=== PATIENT | female | born 1950 | race Caucasian/White ===

== ENCOUNTER → 2018-07-24 13:35 | Outpatient (CLI) | payer SELFPAY ==
[2015-02-10 06:39] VITALS: BMI 36.9
[~2018-07-24 13:35] MED LIST: ALEVE220 MG PO; AMBIEN CR12.5 MG/BO PO; CELEXA20 MG PO; HYDROCODONE-APA1 TAB PO; LEVBID0.375 MG PO; PRILOSEC20 MG PO
== END | disposition home or self-care (01) ==
LOC: D.LABREF 13:35
DX: R50.9 Fever, unspecified (principal)

== ENCOUNTER → 2018-07-24 14:51 | Outpatient (CLI) | payer MEDICARE, OTHER ==
[2015-02-10 06:39] VITALS: BMI 36.9
[2018-07-24 18:10] LABS: BASOPHILS 0.2 % (0-2); EOSINOPHILS 0.6 % (0-7); HEMATOCRIT 38.4 % (36.0-48.0); HEMOGLOBIN 12.4 g/dL (12-16); IMMATURE GRANULOCYTES 0.3 % (0-5); LYMPHOCYTES 18.4 % (15-50); MCH 31.4 pg (26.0-34.0); MCHC 32.3 g/dL (31.0-37.0); MCV 97.2 fL (80.0-100.0); MEAN PLATELET VOLUME 10.1 fL (7.4-10.4); MONOCYTES 8.4 % (2-11); NEUTROPHILS 72.1 % (40-80); PLATELET COUNT 263 10x3/uL (130-400); RBC 3.95 10x6/uL (4.00-5.40); RDW 12.4 % (11.5-14.5)
[2018-07-24 18:32] LABS: ALKALINE PHOSPHATASE 64 U/L (46-116); ALT (SGPT) 21 U/L (10-68); BILIRUBIN - TOTAL 0.26 mg/dL (0.2-1.3); CALC OSMOLALITY 287 mosm/kg (275-300); CALCIUM 8.8 mg/dL (8.5-10.1); CARBON DIOXIDE 32.4 mmol/L (21.0-32.0); CHLORIDE - SERUM 102 mmol/L (98-107); CREATININE - SERUM 0.7 mg/dL (0.6-1.3); GLUCOSE 109 mg/dL (74-106); POTASSIUM - SERUM 3.8 mmol/L (3.5-5.1); PROTEIN - SERUM 7.3 g/dL (6.4-8.2); SODIUM 143 mmol/L (136-145); UREA NITROGEN 18 mg/dL (7-18); eGFR NON AFRICAN AMERICAN 89 mL/min (90-120)
[2018-07-24 19:38] LABS: ERYTHROCYTE SEDIMENTATION RATE 20 mm/hr (0-30)
[2018-07-27 14:13] LABS: ANA REFLEX - DIRECT Negative (Negative)
[2018-07-27 20:07] LABS: CYCLIC CITRULL PEPTIDE IGG/IGA 5 units (0-19)
[2018-07-30 15:16] LABS: ANCA - ANTIMYELOPEROXIDASE <9.0 U/mL (0.0-9.0); ANCA - ANTIPROTEINASE 3 <3.5 U/mL (0.0-3.5); ANCA - ATYPICAL <1:20 titer (Neg:<1:20); ANCA - CYTOPLASMIC <1:20 titer (Neg:<1:20); ANCA - PERINUCLEAR <1:20 titer (Neg:<1:20)
== END | disposition home or self-care (01) ==
LOC: D.LABREF 14:51
PROVIDERS: Family Medicine
DX: R50.9 Fever, unspecified (principal)

== ENCOUNTER → 2018-08-08 15:52 | Outpatient (CLI) | payer MEDICARE, OTHER ==
[2015-02-10 06:39] VITALS: BMI 36.9
[2018-08-08 20:13] LABS: APPEARANCE HAZY (CLEAR); BILIRUBIN NEGATIVE (NEGATIVE); COLOR YELLOW (YELLOW); GLUCOSE NEGATIVE (NEGATIVE); KETONE NEGATIVE (NEGATIVE); NITRITE NEGATIVE (NEGATIVE); PROTEIN TRACE mg/dL (NEGATIVE); SPECIFIC GRAVITY 1.015 (1.005-1.020); UROBILINOGEN NORMAL (NORMAL)
[2018-08-08 20:14] LABS: BACTERIA MANY /hpf (NONE SEEN); EPITHELIAL CELLS 0-5 /hpf (0-5); RED CELLS - URINE 0-5 /hpf (0-5); WHITE CELLS - URINE 25-50 /hpf (0-5)
== END | disposition home or self-care (01) ==
LOC: D.LABREF 15:52
PROVIDERS: Student in an Organized Health Care Education/Training Program
DX: R50.9 Fever, unspecified (principal); L98.9 Disorder of the skin and subcutaneous tissue, unspecified

== ENCOUNTER → 2018-09-05 16:53 | Outpatient (CLI) | payer MEDICARE, OTHER ==
[2015-02-10 06:39] VITALS: BMI 36.9
== END | disposition home or self-care (01) ==
LOC: D.CT 16:53
DX: R50.9 Fever, unspecified (principal)

== ENCOUNTER → 2018-09-07 15:25 | Outpatient (CLI) | payer MEDICARE, OTHER ==
[2015-02-10 06:39] VITALS: BMI 36.9
[2018-09-07 15:36] LABS: BASOPHILS 0.1 % (0-2); EOSINOPHILS 1.8 % (0-7); HEMOGLOBIN 12.2 g/dL (12-16); IMMATURE GRANULOCYTES 0.3 % (0-5); LYMPHOCYTES 21.8 % (15-50); MCH 30.9 pg (26.0-34.0); MCHC 32.1 g/dL (31.0-37.0); MCV 96.2 fL (80.0-100.0); MEAN PLATELET VOLUME 10.4 fL (7.4-10.4); MONOCYTES 7.1 % (2-11); NEUTROPHILS 68.9 % (40-80); PLATELET COUNT 244 10x3/uL (130-400); RBC 3.95 10x6/uL (4.00-5.40); WBC 10.1 10x3/uL (4.8-10.8)
[2018-09-07 15:45] LABS: CREATINE KINASE 59 UL (21-215); LDH 182 U/L (81-234)
[2018-09-07 16:28] LABS: APPEARANCE CLEAR (CLEAR); BILIRUBIN NEGATIVE (NEGATIVE); COLOR YELLOW (YELLOW); GLUCOSE NEGATIVE (NEGATIVE); KETONE NEGATIVE (NEGATIVE); NITRITE NEGATIVE (NEGATIVE); PROTEIN NEGATIVE (NEGATIVE); UROBILINOGEN NORMAL (NORMAL)
[2018-09-07 16:30] LABS: EPITHELIAL CELLS 0-5 /hpf (0-5); RED CELLS - URINE 0-5 /hpf (0-5)
[2018-09-07 16:31] LABS: BACTERIA MANY /hpf (NONE SEEN)
[2018-09-10 18:08] LABS: SPE - A/G RATIO 1.2 (0.7-1.7); SPE - ALBUMIN 3.5 g/dL (2.9-4.4); SPE - ALPHA-1 GLOBULIN 0.3 g/dL (0.0-0.4); SPE - ALPHA-2 GLOBULIN 0.8 g/dL (0.4-1.0); SPE - GAMMA GLOBULIN 0.8 g/dL (0.4-1.8); SPE - M-SPIKE Not Observed g/dL (Not Observed); SPE - TOTAL PROTEIN 6.4 g/dL (6.0-8.5)
== END | disposition home or self-care (01) ==
LOC: D.LABREF 15:25
PROVIDERS: Student in an Organized Health Care Education/Training Program
DX: R50.9 Fever, unspecified (principal)

== ENCOUNTER → 2018-10-01 18:05 | Outpatient (CLI) | payer MEDICARE, OTHER ==
[2015-02-10 06:39] VITALS: BMI 36.9
== END | disposition home or self-care (01) ==
LOC: D.LABREF 18:05
DX: A04.72 Enterocolitis due to Clostridium difficile, not specified as recurrent (principal)

== ENCOUNTER 2018-11-12 10:01 | Day surgery (SDC) | payer MEDICARE, OTHER ==
[~2018-11-12] VITALS: Ht 144.8 cm; Wt 79.5 kg
[2018-11-12 10:50] LABS: BASOPHILS 0.1 % (0-2); EOSINOPHILS 0.4 % (0-7); HEMATOCRIT 41.2 % (36.0-48.0); HEMOGLOBIN 13.6 g/dL (12-16); IMMATURE GRANULOCYTES 0.3 % (0-5); MCH 31.5 pg (26.0-34.0); MCV 95.4 fL (80.0-100.0); MONOCYTES 5.9 % (2-11); NEUTROPHILS 80.3 % (40-80); PLATELET COUNT 234 10x3/uL (130-400); RBC 4.32 10x6/uL (4.00-5.40); RDW 12.7 % (11.5-14.5); WBC 10.3 10x3/uL (4.8-10.8)
[2018-11-12 11:17] LABS: CALC OSMOLALITY 278 mosm/kg (275-300); CARBON DIOXIDE 22.2 mmol/L (21.0-32.0); CHLORIDE - SERUM 104 mmol/L (98-107); CREATININE - SERUM 0.8 mg/dL (0.6-1.3); GLUCOSE 125 mg/dL (74-106); POTASSIUM - SERUM 3.8 mmol/L (3.5-5.1); SODIUM 137 mmol/L (136-145); UREA NITROGEN 23 mg/dL (7-18); eGFR NON AFRICAN AMERICAN 76 mL/min (90-120)
[2018-11-12] MEDS ORDERED: IMMODIUM (11:36)
[2018-11-12] MEDS ORDERED: IMODIUM2 MG (11:37)
[2018-11-12] MEDS ORDERED: LISINOPRIL2.5 MG PO (11:39)
[2018-11-12] MEDS ORDERED: NEURONTIN 300300 MG PO (11:40)
[2018-11-12] MEDS ORDERED: FUROSEMIDE20 MG PO (11:41)
[2018-11-12] MEDS ORDERED: [UNRECOGNIZED DRUG - OTHER] (11:42)
[2018-11-12] MEDS ORDERED: TRAZODONE HCL150 MG (11:42)
[2018-11-12] MEDS ORDERED: PRESERVISION (11:43)
[2018-11-12 12:04] VITALS: BP 127/52; Ht 144.8 cm; Wt 79.5 kg
--- NOTE | 2018-11-12 14:31 | NUR ---
DISCHARGE INSTRUCTIONS GIVEN AND IV REMOVED
--- NOTE | 2018-11-12 14:42 | NUR ---
PT LEFT UNIT VIA WC AT 1440
--- NOTE | 2018-11-13 12:17 | OP ---
PATIENT NAME: YARELY AG MEDICAL RECORD: [id number] :52 LOCATION:[facility] ADMISSION DATE: SURGEON: CRISTAL JEFFERSON DO DATE OF OPERATION: 11/12/2018 PROCEDURE: Colonoscopy with polypectomy and biopsies as well as stool collection. INDICATIONS FOR PROCEDURE: Chronic diarrhea, generalized abdominal pain, gas and bloating. SCOPE: Olympus video pediatric colonoscope. MEDICATIONS: Propofol 400 mg IV per anesthesia. WITHDRAWAL TIME: 19 minutes. ESTIMATED BLOOD LOSS: Minimal. COMPLICATIONS: None. FINDINGS: Informed consent was given. The patient was made comfortable with the above medication. After reaching an adequate level of sedation by slow IV push, the patient was placed on the left side. A digital rectal examination was performed and revealed some hemorrhoids and tags. The endoscope was then advanced under direct visualization through the rectum to the cecum, confirmed by the presence of the appendiceal orifice and ileocecal valve. The endoscope was slowly withdrawn. Mucosa was carefully examined. The prep quality was fair. There were multiple polyps visualized on today's examination. The first was located in the cecum, there were 2 located in the transverse colon, and 2 located in the descending colon. They were all benign-appearing and sessile. They ranged in size from 2 mm to 5 mm in diameter. They were all removed using hot forceps. Retroflexion was performed in the rectum with visualization of grade I internal hemorrhoids without bleeding. The entire mucosa of the colon appeared somewhat granular and congested. Multiple random biopsies were taken during this examination. Stool was also collected to submit for C. difficile as the patient has tested positive for this in the past. The endoscope was withdrawn from the patient. The patient tolerated the procedure well and there were no complications. IMPRESSION: 1. Multiple polyps as described above, removed using hot forceps. 2. Internal and external hemorrhoids without active bleeding. PLAN AND RECOMMENDATIONS: 1. Discharge home when recovery parameters are met. 2. High fiber diet. 3. Continue current medications including as needed Imodium for uncontrolled diarrhea. 4. Start cholestyramine 4 grams twice daily. 5. Dicyclomine 20 mg t.i.d. p.r.n. abdominal pain or cramping. 6. Recall colonoscopy in 2-3 years. 7. Follow up biopsy specimen results. TRANSINT:[id number] Voice Confirmation ID: [id number] DOCUMENT ID: [id number] OPERATIVE REPORT [id number] YARELY AG,CRISTAL Thomas DO at 1217 CC: [id number] DICTATION DATE: 11/12/18 1340 MODERN DANCER: 11/12/18 1400 [facility] 11/12/18 [place] [id number] [place] [id number]
== END 2018-11-12 14:40 | disposition home or self-care (01) ==
LOC: D.OPS 10:01
PROVIDERS: Anesthesiology; ATTEND Internal Medicine Gastroenterology
DX: K63.5 Polyp of colon (principal); D12.0 Benign neoplasm of cecum; D12.4 Benign neoplasm of descending colon; R19.7 Diarrhea, unspecified; K64.0 First degree hemorrhoids; K64.4 Residual hemorrhoidal skin tags; Z01.812 Encounter for preprocedural laboratory examination